=== PATIENT | male | born 1980 | race Caucasian/White ===

== ENCOUNTER 2022-06-30 09:16 | Emergency (ER) | payer BC ==
[~2022-06-30] VITALS: Ht 180.3 cm; Wt 97.5 kg
--- NOTE | 2022-06-30 09:48 | NUR ---
REBECA METZGER AT BEDSIDE FOR MSE
--- NOTE | 2022-06-30 09:59 | NUR ---
Patient discharged to home in stable condition. Written and verbal after care instructions given. Patient verbalizes understanding of instructions. Stressed follow up or return to ER for worsening s/s.
[2022-06-30 10:08] VITALS: BP 134/85
== END 2022-06-30 10:07 | disposition home or self-care (01) ==
LOC: ER 09:16
DX: R51.9 Headache, unspecified (principal); H11.31 Conjunctival hemorrhage, right eye
CPT/HCPCS: A4663